=== PATIENT | female | born 2000 | race Caucasian/White ===

== ENCOUNTER 2023-04-19 23:19 | Emergency (ER) | payer MEDICAID ==
[~2023-04-19] VITALS: Ht 157.5 cm; Wt 64.1 kg
[2023-04-19 23:51] VITALS: BP 101/57; PULSE 101; RESP 16; TEMP 98.3; O2SAT 98
[2023-04-20] MEDS ORDERED: rabies vaccine (PCEC)/PF 2.5 unit kit IMVAC ONE (00:15)
[2023-04-20] MEDS ORDERED: ibuprofen tablet 400 MG TABLET PO ONE (00:40)
--- NOTE | 2023-04-20 02:10 | NUR ---
PT LEFT PRIOR TO TREATMENT AND DISCHARGE
== END 2023-04-20 02:10 | disposition home or self-care (01) ==
LOC: ER 23:21
DX: S51.851D Open bite of right forearm, subsequent encounter (principal); S30.871D Other superficial bite of abdominal wall, subsequent encounter; W54.0XXD Bitten by dog, subsequent encounter
CPT/HCPCS: 99281